=== PATIENT | male | born 1995 | race Caucasian/White ===

== ENCOUNTER 2021-11-09 10:03 | Emergency (ER) | payer SELFPAY ==
[~2021-11-09 10:03] MED LIST: FIORICET1 EACH PO; FLEXERIL5 MG PO; MEDROL 4MG DOSEP4 MG PO
[2021-11-09 11:29] LABS: BASOPHIL 0.2 % (0-2); EOSINOPHIL 1.1 % (0-5); HCT 42.3 % (42.0-52.0); HGB 14.9 g/dl (13.2-18.0); LYMPHOCYTE 34.9 % (15-48); MCH 31.4 pg (25.0-31.0); MCHC 35.2 g/dL (32.0-36.0); MCV 89.1 fL (78.0-100.0); MONOCYTE 8.3 % (0-12); MPV 9.8 fL (6.0-9.5); NEUTROPHIL 55.3 % (41-80); NRBC 0; PLT 281 K/uL (150-400); RBC 4.75 M/uL (4.70-6.00); RDW 11.4 % (11.5-14.0); WBC 5.4 K/uL (4.0-10.5)
[2021-11-09 11:33] LABS: BUN/CREAT RATIO (CALC) 15.8 RATIO; CREATININE 0.76 mg/dL (0.67-1.17); POTASSIUM 3.6 mmol/L (3.5-5.1)
== END 2021-11-09 13:08 | disposition home or self-care (01) ==
LOC: FER 10:03
PROVIDERS: Emergency Medicine
DX: G43.909 Migraine, unspecified, not intractable, without status migrainosus (principal)
CPT/HCPCS: 36415; 70450; 80048; 85025; J1885; J2405; J7030